=== PATIENT | male | born 1990 | race Caucasian/White ===

== ENCOUNTER → 2016-06-26 | Outpatient (CLI) | payer BC ==
--- NOTE | ~2016-06-26 | MR60 ---
[facility] A Service of [facility] RADIOLOGY TEXT RESULTS PATIENT: KELSY RICHARD LOCATION: [facility] : 88 UNIT #: [id number] AGE: [address]: Candice Hopper MD SEX: M ORDER DR: [id number] [facility] [address] [place], [place] [address] [id number] O MR#: [id number] Acc #: [id number] NAME: KELSY RICHARD : 1990 SEX: M STUDY DATE/TIME: 06/26/2016 10:18 UNIT: [facility] ROOM: STUDY DESCRIPTION: MR Foot Wo Contrast Lt Attending Physician: Mandi Hopper M.D. Ordering Physician: Mandi Hopper M.D. Primary Care Physician: Primary Care Physician No MRI CENTER REPORT This report is preliminary unless electronic signature is present. EXAM MRI of the left foot without contrast HISTORY 26-year-old male with a fracture of the fifth metatarsal, twisting injury in 2006 with fifth metatarsal fracture at that time playing basketball. Pain has now worsened over the last 2 weeks. Suspect recurrent fracture. COMPARISON Left foot films 06/25/2016 and report of left ankle and foot films 03/17/2006. FINDINGS Multiplanar multiecho imaging was performed of the left foot utilizing a high field magnet and dedicated protocol. The examination demonstrates extensive marrow edema within the fifth metatarsal particularly within the metatarsal base. Defect is seen across the base of the fifth metatarsal consistent with a metatarsal base fracture. This is actually best demonstrated on the patient's conventional radiographs. The appearance on conventional radiographs suggests a chronic fracture nonunion but the presence of marrow edema does imply an active inflammatory process. There is extensive bone marrow edema within the proximal fragment as well as marrow edema within the proximal and mid fifth metatarsal shaft. No fluid collection is seen across the fracture line. Some mild soft tissue swelling over the dorsum of the foot. No evidence of a penetrating ulcer or focal infectious process. Marrow signal within the remainder of the metatarsals as well as the cuboid and cuneiforms appears normal. Extensor and flexor tendons appear normal. The intrinsic musculature appears normal. IMPRESSION Oblique defect across the base of the fifth metatarsal compatible with fracture, imaging features both at MR and on conventional radiographs [facility] A Service of [facility] RADIOLOGY TEXT RESULTS PATIENT: KELSY RICHARD LOCATION: [facility] : 88 UNIT #: [id number] AGE: [address]: Candice Hopper MD SEX: M ORDER DR: suggest a chronic fracture however the presence of marrow edema within the proximal and distal fracture fragment suggests an active inflammatory process. One may question if the patient had fibrous union across the fracture with recurrent injury contributing to the active process. Minimal soft tissue swelling noted over the dorsum of foot but no other evidence of soft tissue inflammation or infection. Dictated by... Karmen Reno M.D. THIS IS AN ELECTRONICALLY VERIFIED REPORT Karmen Reno M.D. at 06/27/2016 1:58 PM VASILE/ruth TD: 06/26/2016 14:23 JOB #: [id number] MRI CENTER REPORT Page 1 of 1 COPY
== END | disposition home or self-care (01) ==
LOC: CMRI 06:46
DX: S92.352A Displaced fracture of fifth metatarsal bone, left foot, initial encounter for closed fracture (principal); M79.89 Other specified soft tissue disorders
CPT/HCPCS: 73718